=== PATIENT | male | born 1990 | race Caucasian/White ===

== ENCOUNTER 2017-08-12 07:36 | Emergency (ER) | payer OTHER ==
[~2017-08-12] VITALS: Ht 162.6 cm; Wt 70.3 kg
[2017-08-12 07:45] VITALS: BP 133/86
--- NOTE | 2017-08-12 07:51 | ED HAND/WRIST INJURY COMPLAINT ---
History of Present Illness General Chief Complaint: Laceration Procedure Stated Complaint: CUT TO LEFT INDEX FINGER Source: patient Exam Limitations: no limitations Vital Signs & Intake/Output Vital Signs & Intake/Output Vital Signs Date Time Temp Pulse Resp B/P B/P Pulse O2 O2 Flow FiO2 Mean Ox Delivery Rate 08/12 0745 95.4 74 20 133/86 99 Room Air Allergies Coded Allergies: Penicillins (HIVES 08/12/17) Sulfa (Sulfonamide Antibiotics) (UNKNOWN 08/12/17) amoxicillin (HIVES 08/12/17) fish oil (ITCH 08/12/17) infliximab (From [facility]) (? RXN 08/12/17) Triage Note: laceration to left forefinger 30 minutes ago, cut on a rayne at work. bleedding controlled. Triage Nurses Notes Reviewed? yes HPI: Patient was at work when he accidentally cut his left pointer finger with eventual rayne. Positive avulsion just over his middle knuckle. Patient is unsure when his last tetanus shot was. Patient comes in for evaluation. Past History Travel History Traveled to [place] past 21 day No Medical History Any Pertinent Medical History? see below for history Gastrointestinal: crohn's History of MRSA: No History of VRE: No History of CDIFF: No Influenza Vaccine: 11/10/11 Surgical History Surgical History: non-contributory Psychosocial History Who do you live with Patient and family Services at Home None What is your primary language Yemeni Tobacco Use: Never used ETOH Use: occasional use Family History Hx Contributory? No Review of Systems Review of Systems Constitutional: Reports: no symptoms. Respiratory: Reports: no symptoms. Cardiovascular: Reports: no symptoms. GI: Reports: no symptoms. Musculoskeletal: Reports: see HPI. Skin: Reports: see HPI. Neurological/Psychological: Reports: no symptoms. Immunologic/Allergic: Reports: no symptoms. Physical Exam Physical Exam General Appearance: well developed/nourished, alert, awake, anxious, mild distress Head: atraumatic, normal appearance Eyes: Bilateral: PERRL, EOMI. Cardiovascular/Respiratory: normal breath sounds, normal peripheral pulses, regular rate/rhythm, no respiratory distress Hand Left: lacerations (AVULSION), 1st finger, NORMAL TENDON FUNCTION Hand Right: normal inspection, normal range of motion Neurologic/Tendon: normal sensation, normal motor functions, normal tendon functions Progress Differential Diagnosis: AVULSION Plan of Care: Current Medications Sig/Seth Start time Last Medication Dose Stop Time Status Admin Tetanus/Diphtheria 0.5 ML ONCE ONE 08/13 799 UNVr Toxoids Adsorbed 08/12 800 (Decavac) Departure Departure Disposition: HOME OR SELF CARE Condition: Stable Clinical Impression Primary Impression: Avulsion of skin of finger Referrals: Armand NGUYEN,Mariusz Harmon (PCP/Family) Michael NGUYEN,Leland Retana Additional Instructions: Keep finger bandaged and keep it clean. The area will slowly heal over. He may take the bandage off completely once the area is scabbed over. Return if symptoms worsen or for any concerns. Follow-up with Dr. Rodriguez from plastic surgery to make sure that everything is healing properly. Departure Forms: Customer Survey General Discharge Information
== END 2017-08-12 09:13 ==
LOC: ERH 07:36
DX: S61.211A Laceration without foreign body of left index finger without damage to nail, initial encounter (principal); W27.8XXA Contact with other nonpowered hand tool, initial encounter; Y92.89 Other specified places as the place of occurrence of the external cause; Y93.9 Activity, unspecified
CPT/HCPCS: 90471; 90714